=== PATIENT | female | born 1955 | race Caucasian/White ===

== ENCOUNTER 2020-08-26 21:28 | Outpatient (REF) | payer BC, SELFPAY ==
[2020-08-26 21:31] LABS: COMMENT (LAB VIEW ONLY) 47.11 mg/dL; Microalb ug/mg Crea 11.5 ug/mg Cr
== END 2020-08-26 21:29 | disposition home or self-care (01) ==
LOC: NCHCN 21:28
PROVIDERS: PCP Family Medicine; Visit Provider Family Medicine
DX: E11.8 Type 2 diabetes mellitus with unspecified complications (principal)
CPT/HCPCS: 82043; 82570

== ENCOUNTER 2022-02-26 14:09 | Outpatient (REF) | payer MEDICARE, BC, SELFPAY ==
[2022-02-26 15:00] LABS: HCT 39.9 % (36.0-46.0); HGB 13.1 g/dL (11.2-15.7); MCH 28.1 pg (27.0-33.0); MCHC 32.8 % (32.0-36.0); MCV 85 fL (80-95); MPV 9.9 fL (8.0-11.0); Platelet Count 288 10^3/uL (130-400); RBC 4.67 10^6/uL (3.93-5.22); RDW 14.1 % (11.7-14.6); RDW-SD 44.1 fL; WBC 6.26 10^3/uL (4.4-10.8)
[2022-02-26 15:18] LABS: TSH 1.04 uIU/mL (0.36-3.74)
[2022-02-26 16:14] LABS: Vitamin D 25 Total 25.6 ng/mL (30-100)
== END 2022-02-26 14:10 | disposition home or self-care (01) ==
LOC: NCHCN 14:09
PROVIDERS: PCP Family Medicine; Visit Provider Family Medicine
DX: R53.83 Other fatigue (principal); M85.80 Other specified disorders of bone density and structure, unspecified site
CPT/HCPCS: 82306; 85027; 84443

== ENCOUNTER 2022-04-07 11:22 | Outpatient (REF) | payer MEDICARE, SELFPAY ==
[2022-04-07 15:03] LABS: Anion Gap 7.3 mmol/L (3-11); BUN 15 mg/dL (7-18); CO2 30.7 mmol/L (21.0-32.0); CREATININE 0.6 mg/dL (0.55-1.02); Calcium 9.8 mg/dL (8.5-10.1); Chloride 103 mmol/L (98-107); Estimated GFR 99.55 (mL/min/1.73m2); Glucose 157 mg/dL (74-106); Potassium 3.5 mmol/L (3.5-5.1); Sodium 141 mmol/L (136-145)
== END 2022-04-07 11:23 | disposition home or self-care (01) ==
LOC: NCHCN 11:22
PROVIDERS: PCP Family Medicine; Visit Provider Family Medicine
DX: I10 Essential (primary) hypertension (principal)
CPT/HCPCS: 80048

== ENCOUNTER 2023-01-28 17:51 | Outpatient (REF) | payer MEDICARE, SELFPAY ==
--- OUTSIDE RECORDS SUMMARY | 2023-01-28 17:53 | XMS_ITS | CCD ---
Author Name Unknown Address [address] [place] [address] [phone] Organization Unknown Address [address] [place] [address] [id number] Care Team Providers Care [employer] Name Role Phone ANNIE LELE [place] Attending Physician [phone] Vital Signs Unknown or Not Available. Allergies Allergy Code Allergy Type Reaction Status MACRODANTIN 499513 Drug allergy FLU Active LISINOPRIL 44528 Drug allergy Active STEROID 0 Drug allergy Active Procedures Unknown or Not Available. History of Immunizations Unknown or Not Available. Problems Unknown or Not Available. Results COMPREHENSIVE METABOLIC PANE L (CMP) - Collect Date/Time: 08/19/2021 10:15 Test Name Code Test Result Test Units Test Ref Rang e GLUCOSE 2345-7 111 mg/dL L=70 H=116 BUN 3094-0 15 mg/dL L=6 H=25 CREATININE 2160-0 0.57 mg/dL L=0.51 H=0.95 SODIUM SERUM 2951-2 141 mmol/L L=136 H=145 POTASSIUM SERUM 2823-3 3.6 mmol/L L=3.4 H=5 .2 CHLORIDE SERUM 2075-0 106 mmol/L L=96 H=110 CARBON DIOXIDE (CO2) 2028-9 28 mmol/L L=22 H=34 ANION GAP 34640-0 6.9 mmol/L CALCIUM SERUM 35989-9 8.6 mg/dL L=8.2 H=10. 2 BILIRUBIN TOTAL 1975-2 0.9 mg/dL L=0.0 H=1 .3 ALK. PHOS. 6768-6 67 U/L L=46 H=116 SGOT (AST) 1920-8 20 U/L L=15 H=37 SGPT (ALT) 1742-6 38 U/L L=12 H=78 TOTAL PROTEIN 2885-2 7.6 gm/dL L=6.0 H=8.0 ALBUMIN 1751-7 4.0 gm/dL L=3.4 H=5.0 AGE 66 years eGFR (non-Afr.Amer.) 93059-0 107 mL/min eGFR (Afr-Citizen Of [place]) 54570-8 >120 mL/min HEMOGLOBIN A1C* - Collect Da te/Time: 08/19/2021 10:15 Test Name Code Test Result Test Units Test Ref Rang e Hgb A1c 4548-4 6.4 % L=3.8 H=5.7 MEAN BLOOD GLUCOSE 56039-9 127 mg/dL LIPID PANEL* - Collect Date/ Time: 08/19/2021 10:15 Test Name Code Test Result Test Units Test Ref Rang e CHOLESTEROL 2093-3 178 mg/dL L=0 H=200 TRIGLYCERIDES 2571-8 215 mg/dL L=57 H=256 HDL 2085-9 44 mg/dL L=38 H=92 non-HDL-C 03114-0 134 mg/dL L=0 H=160 LDL (CALC) 39594-4 91 mg/dL L=0 H=130 % HDL 24.7 % Chol/HDL Ratio 9830-1 4.0 L=0.0 H=4. 4 CHD Relative Risk 0.9 x Avg L=0.0 H =1.0 LDL/HDL Ratio 98732-0 2.1 L=0.0 H=3.2 CHD Relative Risk. 0.7 x Avg L=0.0 H=1.0 FASTING STATUS: NOT KNOWN N/A MICROALBUMIN URINE - Collect Date/Time: 08/19/2021 10:15 Test Name Code Test Result Test Units Test Ref Rang e Creatinine Urine 2161-8 138.8 mg/dl Microalb mg/dl 54759-6 1.0 mg/dl Microalbumin ug/mg C 9318-7 7.2 ug/mg Cr Active Medications Unknown or Not Available. Medications Administered During Visit Unknown or Not Available. Encounters Encounter Diagnosis Diagnosis Code Start Date Adult health examination [id number] Social History Smoking Status Code Start Date End Date Never smoker [id number] Patient Decision Aids Unknown or Not Available. Discharge Instructions You were admitted to [facility] on 08/19/2021 09:42 with a principal diagnosis of Encounter for general adult medical examination without abnormal findings You had the following tests done:COMPREHENSIVE METABOLIC PANEL (CMP)HEMOGLOBIN A1C*LIPID PANEL*MICROALBUMIN URINE You were discharged from [facility] on 08/19/2021 09:42 Should you have any questions prior to discharge, please contact a member of your healthcare team. If you have left the hospital and have any questions, please contact your primary care physician. Chief Complaint and Reason For Visit Unknown or Not Available. Function Status Unknown or Not Available. Plan of Care Unknown or Not Available. Referral/Transition of Care Unknown or Not Available.
--- OUTSIDE RECORDS SUMMARY | 2023-01-28 17:53 | XMS_ITS | CCD ---
Author Name Unknown Address [address] [place] [address] [phone] Organization Unknown Address [address], [place] [phone] Care Team Providers Care [employer] Name Role Phone PATRIZIA SALVADOR Attending Physician [phone] Vital Signs Unknown or Not Available. Allergies Allergy Code Allergy Type Reaction Status MACRODANTIN 549388 Drug allergy FLU Active LISINOPRIL 95877 Drug allergy Active STEROID 0 Drug allergy Active Procedures Unknown or Not Available. History of Immunizations Unknown or Not Available. Problems Unknown or Not Available. Results Unknown or Not Available. Active Medications Unknown or Not Available. Medications Administered During Visit Unknown or Not Available. Encounters Encounter Diagnosis Diagnosis Code Start Date Obstructive sleep apnea syndrome [id number] 06/01/2022 Social History Smoking Status Code Start Date End Date Never smoker [id number] Patient Decision Aids Unknown or Not Available. Discharge Instructions You were admitted to [facility] on 06/01/2022 15:39 with a principal diagnosis of Obstructive sleep apnea (adult) (pediatric) You were discharged from [facility] on 06/01/2022 15:39 Should you have any questions prior to [...]
[2023-01-28 21:55] LABS: COMMENT (LAB VIEW ONLY) 30.57 mg/dL; Microalb ug/mg Crea 26.2 ug/mg Cr
== END 2023-01-28 17:52 | disposition home or self-care (01) ==
LOC: NCHCN 17:51
PROVIDERS: PCP Family Medicine; Visit Provider Family Medicine
DX: E11.8 Type 2 diabetes mellitus with unspecified complications (principal); I10 Essential (primary) hypertension; E78.5 Hyperlipidemia, unspecified
CPT/HCPCS: 82043; 82570

== ENCOUNTER 2024-04-25 18:35 | Outpatient (REF) | payer MEDICARE, OTHER, SELFPAY ==
[2024-04-25 21:39] LABS: COMMENT (LAB VIEW ONLY) 44.55 mg/dL; Microalb ug/mg Crea 84.6 ug/mg Cr
[2024-04-25 21:59] LABS: LDL CHOLESTEROL 110 mg/dL (<100)
== END 2024-04-25 18:36 | disposition home or self-care (01) ==
LOC: NCHCN 18:35
PROVIDERS: PCP Family Medicine; Visit Provider Family Medicine
DX: E11.8 Type 2 diabetes mellitus with unspecified complications (principal)
CPT/HCPCS: 83721; 82043; 82570

== ENCOUNTER 2024-08-20 12:11 | Outpatient (REF) | payer MEDICARE, OTHER, SELFPAY ==
[2024-08-20 16:03] LABS: Anion Gap 9.2 mmol/L (3-11); BUN 15 mg/dL (7-18); CO2 28.8 mmol/L (21.0-32.0); CREATININE 0.6 mg/dL (0.55-1.02); Calcium 9.9 mg/dL (8.5-10.1); Calculated LDL 94 mg/dL (<100); Chloride 105 mmol/L (98-107); Cholesterol 194 mg/dL (<200); Estimated GFR 98.32 (mL/min/1.73m2); Glucose 129 mg/dL (74-106); HDL Cholesterol 50 mg/dL (>or=50); Potassium 3.8 mmol/L (3.5-5.1); Sodium 143 mmol/L (136-145); Triglyceride 254 mg/dL (<150)
== END 2024-08-20 12:12 | disposition home or self-care (01) ==
LOC: NCHCN 12:11
PROVIDERS: PCP Family Medicine; Visit Provider Family Medicine
DX: I10 Essential (primary) hypertension (principal); E78.5 Hyperlipidemia, unspecified
CPT/HCPCS: 80048; 80061